=== PATIENT | female | born 2000 | race American Indian/Alaskan Native ===

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

== ENCOUNTER 2021-08-21 19:13 | Emergency (ER) | payer MEDICAID ==
[2021-08-21 19:25] VITALS: BP 107/75
[2021-08-21 21:37] LABS: Bacteria,Urine 2+ /HPF (Negative); Bilirubin,Urine NEG (Negative); Blood,Urine LG (Negative); Color,Urine Yellow (Yellow); Mucus,Urine 3+ /HPF
[2021-08-21 21:42] LABS: Hematocrit 37.9 % (30.3-42.9); Hemoglobin 12.1 gm/dl (10.1-14.3); Mean Corpuscular HGB Conc 32 % (30-34); Mean Corpuscular Volume 88 fl (79-97); Platelet Count 173 K/mm3 (140-440)
[2021-08-21 21:48] LABS: Alanine Aminotransferase 6 units/L (7-56); Blood Urea Nitrogen 11 mg/dL (7-17); Calcium 9.5 mg/dL (8.4-10.2); Hemolysis Index 40
[2021-08-21 21:50] LABS: BUN/Creatinine Ratio 18
--- NOTE | 2021-08-21 22:07 | Emergency Department Report ---
ED Female HPI - General Chief complaint: Urogenital-Female Stated complaint: POSS MISCARRIAGE Time Seen by Provider: 08/21/21 21:16 Source: patient Mode of arrival: Ambulatory Limitations: No Limitations - History of Present Illness Initial comments: During the history and physical examination, I am chaperoned by Mehnaz Agee The patient is a 21-year-old female. She is not known to myself previously. She is 2, para 1. She believes that she is approximately 5 weeks gestation. She has not established care with an outpatient .NET DEVELOPER physician. She presents to the ER today with a complaint of a day and a half of vaginal cramping and bleeding. She denies headache, neck pain, chest pain, abdominal pain at this time, and also denies vomiting, diarrhea, urinary symptoms. On review of systems, she does endorse recent vigorous sexual intercourse. MD Complaint: vaginal bleeding -: Gradual, days(s) Severity: moderate Quality: cramping Consistency: now resolved Improves with: none Worsens with: none Are you Now?: Yes - Related Data Sexually active: Yes Home Medications Medication Instructions Recorded Confirmed Last Taken Vit-Fe Fumar-FA [ 1 tab PO DAILY 08/13/19 08/13/19 Unknown Vitamin] Previous Rx's Medication Instructions Recorded Last Taken Type Ferrous Sulfate [Feosol 325 MG tab] 325 mg PO BID #60 tablet 08/14/19 Unknown Rx Acetaminophen [Non-Aspirin Extra 500 mg PO Q6HR PRN #30 tablet 08/22/21 Unknown Rx Strength] Doxylamine Succinate/Vit B6 1 each PO QHS PRN #30 tablet. 08/22/21 Unknown Rx [Ismael Garrett 10-10 mg Tablet] Jessica Root [Jessica] 250 mg PO QID PRN #30 capsule 08/22/21 Unknown Rx cephALEXin [Keflex] 500 mg PO Q6HR #19 capsule 08/22/21 Unknown Rx Allergies Allergy/AdvReac Type Severity Reaction Status Date / Time No Known Allergies Allergy Verified 08/14/19 00:19 ED Review of Systems ROS: Stated complaint: POSS MISCARRIAGE Other details as noted in HPI Constitutional: denies: fever Eyes: denies: vision change ENT: denies: epistaxis Respiratory: denies: cough Cardiovascular: denies: chest pain Gastrointestinal: denies: vomiting Genitourinary: abnormal menses. denies: dysuria Musculoskeletal: denies: back pain Neurological: denies: headache, weakness ED Past Medical Hx - Past Medical History Hx Hypertension: No Hx Diabetes: No Hx Deep Vein Thrombosis: No Hx Renal Disease: No Hx Sickle Cell Disease: No Hx Seizures: No Hx Asthma: No Hx HIV: No - Surgical History Past Surgical History?: No - Social History Smoking Status: Never Smoker - Medications Home Medications: Home Medications Medication Instructions Recorded Confirmed Last Taken Type Vit-Fe Fumar-FA [ 1 tab PO DAILY 08/13/19 08/13/19 Unknown History Vitamin] Ferrous Sulfate [Feosol 325 MG tab] 325 mg PO BID #60 tablet 08/14/19 Unknown Rx Acetaminophen [Non-Aspirin Extra 500 mg PO Q6HR PRN #30 tablet 08/22/21 Unknown Rx Strength] Doxylamine Succinate/Vit B6 1 each PO QHS PRN #30 tablet. 08/22/21 Unknown Rx [Diclegis Dr 10-10 mg Tablet] Jessica Root [Jessica] 250 mg PO QID PRN #30 capsule 08/22/21 Unknown Rx cephALEXin [Keflex] 500 mg PO Q6HR #19 capsule 08/22/21 Unknown Rx ED Physical Exam - General Limitations: No Limitations, Other (During the history and physical examination, I am chaperoned by Mehnaz Agee) General appearance: alert, in no apparent distress - Head Head exam: Present: atraumatic, normocephalic - Eye Eye exam: Present: normal appearance, EOMI. Absent: nystagmus - ENT ENT exam: Present: normal exam, normal orophraynx, mucous membranes moist, normal external ear exam - Neck Neck exam: Present: normal inspection, full ROM. Absent: tenderness, meningismus - Respiratory Respiratory exam: Present: normal lung sounds bilaterally. Absent: respiratory distress, wheezes, rales, rhonchi, stridor, decreased breath sounds - Cardiovascular Cardiovascular Exam: Present: regular rate, normal rhythm, normal heart sounds. Absent: bradycardia, tachycardia, irregular rhythm, systolic murmur, diastolic murmur, rubs, gallop - GI/Abdominal GI/Abdominal exam: Present: soft. Absent: distended, tenderness, guarding, rebound, rigid, pulsatile mass - External exam: Present: normal external exam (Patient provided verbal consent for external gynecologic examination with guitar instructor), other (Chaperoned by Mehnaz Agee). Absent: bleeding - Extremities Exam Extremities exam: Present: normal inspection, full ROM, pedal edema (1+ edema in the bilateral lower), other (2+ pulses noted in the bilateral upper and lower extremities. There is no palpable cord. negative Homans sign. Muscular compartments are soft. The pelvis is stable.). Absent: calf tenderness - Back Exam Back exam: Present: normal inspection. Absent: tenderness, CVA tenderness (R), CVA tenderness (L), paraspinal tenderness, vertebral tenderness - Neurological Exam Neurological exam: Present: alert, oriented X3, normal gait, other (No facial droop. Tongue midline. Extraocular movements intact bilaterally. Facial sensation intact to light touch in V1, V2, V3 distribution bilaterally. 5 and a 5 strength in 4 extremities. Sensation intact to light touch in 4 extremities.). Absent: motor sensory deficit - Psychiatric Psychiatric exam: Present: normal affect, normal mood - Skin Skin exam: Present: warm, dry, intact, normal color. Absent: rash ED Course Vital Signs 08/21/21 08/22/21 19:24 01:48 Temperature 98.2 F 98.1 F Pulse Rate 103 H 88 Respiratory 15 16 Rate Blood Pressure 107/75 [Left] O2 Sat by Pulse 98 99 Oximetry - Reevaluation(s) Reevaluation #1: 08/22/21 00:11 Differential diagnosis, including but not limited to: Miscarriage, threatened miscarriage, ectopic , bacteriuria, urinary tract infection Assessment and plan: 21-year-old female, who is afebrile, with reassuring vital signs, with no abdominal tenderness, rebound or guarding, G2, P1, believes that she is approximately 5-1/2 weeks , has not followed up with an outpatient .NET DEVELOPER physician, presenting with no intrauterine identified on ultrasound, no extrauterine identified on ultrasound, no abdominal tenderness, rebound or guarding, and quantitative hCG of approximately 2000. This is likely miscarriage. I do not suspect ruptured ectopic at this time given the benign physical examination. Patient on cell phone during [facility] repeat evaluations. She felt improved after Tylenol. Keflex for bacteriuria. Contacted [facility] DEVELOPER on- call, Dr. Quiles Discussed the patient's history, physical, laboratory studies and imaging st udies and overall clinical impression. Plan is to discharge this patient with as needed Tylenol, vitamins, Keflex, as needed nausea medicine, and instructions to follow-up in 2 days for repeat checkup and evaluation. Patient reports that she is reliable to follow-up as an outpatient. Return precautions reviewed. All questions answered 08/22/21 00:18 ED Medical Decision Making - Lab Data Result diagrams: 08/21/21 20:56 08/21/21 20:56 Vital Signs 08/21/21 19:24 Temperature 98.2 F Pulse Rate 103 H Respiratory 15 Rate Blood Pressure 107/75 [Left] O2 Sat by Pulse 98 Oximetry Lab Results 08/21/21 08/21/21 08/21/21 Range/Units 20:56 20:56 20:56 WBC 8.7 (4.5-11.0) K/mm3 RBC 4.30 (3.65-5.03) M/mm3 Hgb 12.1 (10.1-14.3) gm/dl Hct 37.9 (30.3-42.9) % MCV 88 (79-97) fl MCH 28 (28-32) pg MCHC 32 (30-34) % RDW 14.0 (13.2-15.2) % Plt Count 173 (140-440) K/mm3 Lymph % (Auto) Telehealth Director Woodruff % (Auto) Telehealth Director Eos % (Auto) Telehealth Director Baso % (Auto) Telehealth Director Lymph # (Auto) Telehealth Director Woodruff # (Auto) Telehealth Director Eos # (Auto) Telehealth Director Baso # (Auto) Telehealth Director Seg Neutrophils % Telehealth Director Seg Neutrophils # Telehealth Director Sodium 136 L (137-145) mmol/L Potassium 4.4 (3.6-5.0) mmol/L Chloride 103.2 (98-107) mmol/L Carbon Dioxide 21 L (22-30) mmol/L Anion Gap 16 mmol/L BUN 11 (7-17) mg/dL Creatinine 0.6 (0.6-1.2) mg/dL Estimated GFR > 60 ml/min BUN/Creatinine Ratio 18 % Glucose 93 (65-100) mg/dL Calcium 9.5 (8.4-10.2) mg/dL Total Bilirubin 0.30 (0.1-1.2) mg/dL AST 16 (5-40) units/L ALT 6 L (7-56) units/L Alkaline Phosphatase 83 (35-129) units/L Total Protein 7.7 (6.3-8.2) g/dL Albumin 4.0 (3.9-5) g/dL Albumin/Globulin Ratio 1.1 % HCG, Quant 2172 H (0-4) mIU/mL Urine Color (Yellow) Urine Turbidity (Clear) Urine pH (5.0-7.0) Ur Specific Hamel (1.003-1.030) Urine Protein (Negative) mg/dL Urine Glucose (UA) (Negative) mg/dL Urine Ketones (Negative) mg/dL Urine Blood (Negative) Urine Nitrite (Negative) Urine Bilirubin (Negative) Urine Urobilinogen (<2.0) mg/dL Ur Leukocyte Esterase (Negative) Urine WBC (Auto) (0.0-6.0) /HPF Urine RBC (Auto) (0.0-6.0) /HPF U Epithel Cells (Auto) (0-13.0) /HPF Urine Bacteria (Auto) (Negative) /HPF Urine Mucus /HPF Blood Type 08/21/21 08/21/21 Range/Units 20:56 21:12 WBC (4.5-11.0) K/mm3 RBC (3.65-5.03) M/mm3 Hgb (10.1-14.3) gm/dl Hct (30.3-42.9) % MCV (79-97) fl MCH (28-32) pg MCHC (30-34) % RDW (13.2-15.2) % Plt Count (140-440) K/mm3 Lymph % (Auto) Woodruff % (Auto) Eos % (Auto) Baso % (Auto) Lymph # (Auto) Woodruff # (Auto) Eos # (Auto) Baso # (Auto) Seg Neutrophils % Seg Neutrophils # Sodium (137-145) mmol/L Potassium (3.6-5.0) mmol/L Chloride (98-107) mmol/L Carbon Dioxide (22-30) mmol/L Anion Gap mmol/L BUN (7-17) mg/dL Creatinine (0.6-1.2) mg/dL Estimated GFR ml/min BUN/Creatinine Ratio % Glucose (65-100) mg/dL Calcium (8.4-10.2) mg/dL Total Bilirubin (0.1-1.2) mg/dL AST (5-40) units/L ALT (7-56) units/L Alkaline Phosphatase (35-129) units/L Total Protein (6.3-8.2) g/dL Albumin (3.9-5) g/dL Albumin/Globulin Ratio % HCG, Quant (0-4) mIU/mL Urine Color Yellow (Yellow) Urine Turbidity Slightly-cloudy (Clear) Urine pH 5.0 (5.0-7.0) Ur Specific Hamel 1.028 (1.003-1.030) Urine Protein 30 mg/dl (Negative) mg/dL Urine Glucose (UA) Neg (Negative) mg/dL Urine Ketones 20 (Negative) mg/dL Urine Blood Lg (Negative) Urine Nitrite Pos (Negative) Urine Bilirubin Neg (Negative) Urine Urobilinogen 2.0 (<2.0) mg/dL Ur Leukocyte Esterase Sm (Negative) Urine WBC (Auto) 25.0 H (0.0-6.0) /HPF Urine RBC (Auto) 2.0 (0.0-6.0) /HPF U Epithel Cells (Auto) 5.0 (0-13.0) /HPF Urine Bacteria (Auto) 2+ (Negative) /HPF Urine Mucus 3+ /HPF Blood Type O POSITIVE - Radiology Data Radiology results: pending, report reviewed, image reviewed ULTRASOUND OBSTETRIC INDICATION: with vaginal bleeding. TECHNIQUE: Transabdominal and Transvaginal. COMPARISON: None available. FINDINGS: GESTATIONAL SAC: None seen. YOLK SAC: None seen. EMBRYO/FETUS: None seen. ADNEXA: The left ovary is not visualized. The right ovary is unremarkable. FREE FLUID: None. ADDITIONAL FINDINGS: No acute abnormality of the uterus is seen. IMPRESSION: 1. No sonographic visualization of an intrauterine or ectopic or other acute findings. 2. Nonvisualization of the left ovary. Signer Name: Arturo Lancaster MD Signed: 08/21/2021 10:46 PM Workstation Name: [id number] Critical care attestation.: If time is entered above; I have spent that time in minutes in the direct care of this critically ill patient, excluding procedure time. ED Disposition Clinical Impression: Vaginal bleeding, test positive, Bacteriuria Disposition: 01 HOME / SELF CARE / HOMELESS Is pt being admited?: No Does the pt Need Aspirin: No Condition: Good Instructions: Miscarriage Additional Instructions: Patient was found to have bacteria in the urine, positive blood test, but no demonstrated in the uterus, or outside the uterus. Diagnostic possibilities include early ectopic , complete miscarriage, and termination of . Rest, avoid heavy lifting and strenuous physical activity. Avoid sex. The patient needs to be seen in 48 hours for repeat checkup and evaluation. The patient may follow-up with an .NET DEVELOPER physician, return to this emergency room for repeat checkup and evaluation, including laboratory studies, plus minus ultrasound, or follow-up at an outpatient urgent care center. The patient should return to the emergency room right away with bleeding more than 2 pads soaked per hour, severe abdominal pain, lightheadedness, loss of consciousness, change in mental status, or any new, worsened or different symptoms not present on the initial emergency room evaluation. Please take the vitamins as directed. Take the antibiotics as directed. Take the pain medications and nausea medications as directed. Prescriptions: Doxylamine Succinate/Vit B6 [Ismael Dr 10-10 mg Tablet] 1 each PO QHS PRN #30 tablet.dr PRN Reason: Nausea Jessica Root [Jessica] 250 mg PO QID PRN #30 capsule PRN Reason: Nausea cephALEXin [Keflex] 500 mg PO Q6HR #19 capsule Acetaminophen [Non-Aspirin Extra Strength] 500 mg PO Q6HR PRN #30 tablet PRN Reason: Pain , Severe (7-10) Referrals: [facility] [Provider Group] - 08/24/21 PRIMARY CARE, [Primary Care Provider] - 08/24/21 Forms: Work/School Release Form(ED)
[2021-08-21] MEDS ORDERED: ACETAMINOPHEN 325 MG TAB PO ONE (22:33)
[2021-08-21] MEDS ORDERED: cephALEXin 500 MG CAP PO ONE (22:33)
--- NOTE | 2021-08-21 23:50 | Ultrasound Report ---
ULTRASOUND OBSTETRIC INDICATION: with vaginal bleeding. TECHNIQUE: Transabdominal and Transvaginal. COMPARISON: None available. FINDINGS: GESTATIONAL SAC: None seen. YOLK SAC: None seen. EMBRYO/FETUS: None seen. ADNEXA: The left ovary is not visualized. The right ovary is unremarkable. FREE FLUID: None. ADDITIONAL FINDINGS: No acute abnormality of the uterus is seen. IMPRESSION: 1. No sonographic visualization of an intrauterine or ectopic or other acute findings. 2. Nonvisualization of the left ovary. Signer Name: Arturo Lancaster MD Signed: 08/21/2021 11:46 PM Workstation Name: [id number]
== END 2021-08-22 01:49 | disposition home or self-care (01) ==
LOC: ED 19:13
DX: O46.8X1 Other antepartum hemorrhage, first trimester (principal); Z32.01 Encounter for pregnancy test, result positive; R82.71 Bacteriuria; Z3A.01 Less than 8 weeks gestation of pregnancy
CPT/HCPCS: 36415; 76801; 76817; 80053; 81001; 84702; 85025; 86900; 86901; 87086; 99284

== ENCOUNTER 2022-05-12 07:02 | Outpatient (CLI) | payer MEDICAID, OTHER ==
[2022-05-12 08:15] VITALS: BP 109/66
[2022-05-12 10:10] LABS: Bacteria,Urine 4+ /HPF (Negative); Hyaline Casts,Urine 2 /LPF; Mucus,Urine FEW /HPF
[2022-05-12 10:12] LABS: WBC,Urine > 182.0 /HPF (0.0-6.0)
[2022-05-12 10:17] LABS: Color,Urine Yellow (Yellow)
[2022-05-12] MEDS ORDERED: LACTATED RINGERS 1,000 ML IV ONE (10:49)
[2022-05-12] MEDS ORDERED: ACETAMINOPHEN 325 MG TAB PO NR (14:53)
== END 2022-05-12 15:18 | disposition home or self-care (01) ==
LOC: TRG 07:02 → APU 07:03 → TRG 15:18
PROVIDERS: ATTEND Obstetrics & Gynecology
DX: O62.9 Abnormality of forces of labor, unspecified (principal); Z3A.30 30 weeks gestation of pregnancy
CPT/HCPCS: 59025; 81001; 96360; 96361